=== PATIENT | male | born 1985 | race Two or more races ===

== ENCOUNTER 2024-03-21 13:16 | Emergency (ER) | payer MEDICAID ==
[~2024-03-21] VITALS: Ht 170.2 cm; Wt 92.0 kg
[2024-03-21 13:22] VITALS: TEMP 98.7
[2024-03-21 16:28] LABS: APPEARANCE,URINE CLEAR (CLEAR); BILIRUBIN,URINE NEGATIVE (NEGATIVE); COLOR,URINE LIGHT YELLOW (YELLOW); GLUCOSE, URINE (UA) NEGATIVE (NEGATIVE); KETONES,URINE NEGATIVE (NEGATIVE); LEUKOCYTE ESTERASE ,URINE NEGATIVE (NEGATIVE); NITRATE,URINE NEGATIVE (NEGATIVE); OCCULT BLOOD,URINE TRACE (NEGATIVE); PROTEIN,URINE NEGATIVE (NEGATIVE); SPECIFIC GRAVITIY, URINE 1.023 (1.003-1.030); UROBILINOGEN,URINE <=1.0 mg/dL (<=1.0)
[2024-03-21 16:47] LABS: BACTERIA,URINE None Seen /HPF (None Seen); RBC,URINE None Seen /HPF (0-2); WBC,URINE None Seen /HPF (0-5)
[2024-03-21 17:05] VITALS: BP 109/74; PULSE 96; RESP 16; O2SAT 98
== END 2024-03-21 17:23 | disposition home or self-care (01) ==
LOC: EMS 13:26
DX: N50.812 Left testicular pain (principal); N50.811 Right testicular pain; R35.0 Frequency of micturition
CPT/HCPCS: 76870; 81001; 87491; 87591; 99284; Z7502